=== PATIENT | male | born 1985 | race Caucasian/White ===

== ENCOUNTER 2016-12-29 18:14 | Emergency (ER) | payer OTHER ==
[~2016-12-29 18:14] MED LIST: AMOXICILLIN PO; DOXYCYCLINE PO; HYDROCODONE-APA1 T33 PO; IBUPROFEN PO; KEPPRA500 M2 PO; KETOPROFEN PO; KLONOPIN; LIDOCAINE HC20 MG/M1 MM; LORTAB 5/500 TA1 TA1 PO; MOBIC PO; NEURONTIN300 MG PO; ORUDIS75 M1 DOB; PEN-VEE K PO; VICODIN 5/1 TAB 5/50 PO; VICODIN 5/500 T1 TAB PO; VICOPROFEN 200-1 TAB; VISTARIL PO
== END 2016-12-29 19:35 | disposition home or self-care (01) ==
LOC: CFTX 18:14
DX: T40.1X1A Poisoning by heroin, accidental (unintentional), initial encounter (principal); I10 Essential (primary) hypertension; F17.210 Nicotine dependence, cigarettes, uncomplicated; Z79.899 Other long term (current) drug therapy
CPT/HCPCS: 96374; 99283